=== PATIENT | male | born 2000 | race Caucasian/White ===

== ENCOUNTER 2021-06-03 13:30 | Emergency (ER) | payer OTHER ==
[~2021-06-03] VITALS: Ht 175.3 cm; Wt 77.0 kg
[2021-06-03] MEDS ORDERED: VITAMINS (13:49)
[2021-06-03] MEDS ORDERED: IBUPROFEN 600MG TABLET PO STA (14:58)
[2021-06-03] MEDS ORDERED: LIDOCAINE HCL/PF 1% 10 MG/ML 5ML VIAL INFIL ONE (15:00)
[2021-06-03] MEDS ORDERED: BACITRACIN ZINC OINT UDPKT TOP ONE (15:00)
[2021-06-03] MEDS ORDERED: HYDROCODONE/ACETAMINOPHEN 5/325MG TABLET PO STA (17:12)
[2021-06-03 17:21] VITALS: BP 131/86
[2021-06-03] MEDS ORDERED: IBUP-2029 PO (17:47)
== END 2021-06-03 18:34 | disposition home or self-care (01) ==
LOC: ER 13:30
DX: S81.811A Laceration without foreign body, right lower leg, initial encounter (principal); W22.8XXA Striking against or struck by other objects, initial encounter; W25.XXXA Contact with sharp glass, initial encounter; Y93.89 Activity, other specified; Y92.810 Car as the place of occurrence of the external cause; Y99.8 Other external cause status
CPT/HCPCS: 12001; 73590; 99283; J3490; Z7610